=== PATIENT | male | born 1980 | race Caucasian/White ===

== ENCOUNTER → 2023-02-13 14:15 | Outpatient (CLI) | payer OTHER, MEDICAID, SELFPAY ==
[2023-02-13 15:26] LABS: Hematocrit 39.8 % (41-53); Hemoglobin 13.8 g/dL (13.5-17.5); Mean Corpuscular HGB Conc 34.7 % (30-36); Mean Corpuscular Hemoglobin 32.2 PG (26-34); Mean Corpuscular Volume 92.9 fL (80-100); Platelet Count 210 X10^3/uL (150-400); Red Blood Cell Count 4.28 X10^6/uL (4.5-5.9); Red Cell Distribution Width 12.2 % (11.6-14.8); White Blood Cell Count 7.6 X10^3/uL (4.5-11.0)
[2023-02-13 16:08] LABS: Alanine Aminotransferase 19 IU/L (<50); Albumin 4.4 g/dL (3.5-5.0); Albumin Globulin Ratio 1.8 (1.0-2.8); Alkaline Phosphatase 67 U/L (38-126); Aspartate Aminotransferase 26 IU/L (17-59); BUN Creatinine Ratio 11.1 (6-22); Bilirubin Total 0.7 mg/dL (0.2-1.3); Blood Urea Nitrogen 10 mg/dL (9-20); Calcium 9.9 mg/dL (8.4-10.2); Carbon Dioxide 29 mmol/L (22-32); Chloride 103 mmol/L (98-107); Cholesterol 220 mg/dL (140-199); Estimated Glomerular Filt Rate > 60 mL/min (>60); Globulin 2.4 g/dL (1.7-4.1); Glucose 80 mg/dL (70-100); HDL Cholesterol 66 mg/dL (40-60); HEMOLYSIS < 15 (0-50); LDL Cholesterol Calculated 114 mg/dL (<100); Sodium 138 mmol/L (137-145); Total Protein 6.8 g/dL (6.3-8.2); Triglycerides 202 mg/dL (35-150)
[2023-02-13 17:30] LABS: Urine N gonorrhoeae NOT DETECTED
[2023-02-13 17:32] LABS: Urine Chlamydia NOT DETECTED
[2023-02-15 16:39] LABS: HIV 1 & 2 Ab/Ag 4th Gen Combo NEGATIVE (NEGATIVE); Hep C Virus Ab w/Reflex Quant NEGATIVE s/c (NEGATIVE); Hepatitis B Surface Antigen NEGATIVE s/c (NEGATIVE)
[2023-02-17 06:19] LABS: Hepatitis B Surf Ab Qualitativ Reactive (.)
== END ==
PROVIDERS: PCP Internal Medicine; Referring Provider Internal Medicine; Visit Provider Internal Medicine
DX: Z00.00 Encounter for general adult medical examination without abnormal findings (principal); R53.83 Other fatigue; Z20.9 Contact with and (suspected) exposure to unspecified communicable disease
CPT/HCPCS: 36415; 80053; 80061; 85027; 86706; 86803; 87340; 87389; 87491; 87591

== ENCOUNTER → 2025-01-27 16:27 | Outpatient (CLI) | payer OTHER, SELFPAY ==
[2025-01-27 16:57] LABS: Hematocrit 38.6 % (41-53); Hemoglobin 13.2 g/dL (13.5-17.5); Mean Corpuscular HGB Conc 34.2 % (30-36); Mean Corpuscular Hemoglobin 32.0 PG (26-34); Mean Corpuscular Volume 93.5 fL (80-100); Platelet Count 211 X10^3/uL (150-400)
[2025-01-27 18:07] LABS: Cholesterol 207 mg/dL (140-199); Glucose 86 mg/dL (70-99); HDL Cholesterol 58 mg/dL (40-60); Triglycerides 229 mg/dL (35-150)
[2025-01-27 18:08] LABS: HEMOLYSIS < 15 (0-50); Iron 169 ug/dL (49-181)
[2025-01-27 18:19] LABS: Percent Iron Saturation 57 % (20-50); Total Iron Binding Capacity 299 ug/dL (261-462); Transferrin 259 mg/dL (206-381)
[2025-01-27 18:45] LABS: Ferritin 111 ng/mL (18-464)
[2025-01-27 18:58] LABS: Vitamin B12 Reflex MMA if <400 428 pg/mL (239-931)
== END ==
PROVIDERS: PCP Internal Medicine; Referring Provider Internal Medicine; Visit Provider Internal Medicine
DX: D64.9 Anemia, unspecified (principal); E53.8 Deficiency of other specified B group vitamins; Z00.00 Encounter for general adult medical examination without abnormal findings
CPT/HCPCS: 36415; 80061; 82607; 82728; 82947; 83540; 83550; 85027